=== PATIENT | female | born 1970 | race Caucasian/White ===

== ENCOUNTER → 2022-03-03 08:46 | Outpatient (BNVA) | payer MEDICAID, SELFPAY | PROVIDERS: PCP Internal Medicine; Referring Provider Internal Medicine; Visit Provider Physician Assistant | DX: Z12.11 Encounter for screening for malignant neoplasm of colon (principal); K59.01 Slow transit constipation | CPT/HCPCS: 99202 ==

== ENCOUNTER 2022-09-06 08:30 | Outpatient (REF) | payer MEDICAID, SELFPAY ==
--- NOTE | ~2022-09-06 | MM_ITS ---
EXAMINATION: MM SCREENING DIGITAL BREAST TOMOSYNTHESIS, BILATERAL CLINICAL INFORMATION: Screening. Asymptomatic. The lifetime risk of breast cancer based on the Tyrer-Cuzick Model is 4%. COMPARISON: Prior breast imaging exams, most recent mammography 02/25/2016 TECHNIQUE: Digital breast tomosynthesis is performed in both the craniocaudal and mediolateral oblique views along with computer-aided detection (CAD). Synthesized 2D images are generated from the tomosynthesis. FINDINGS: There are scattered areas of fibroglandular density (ACR BI-RADS breast composition Category b). Breast tissue composition is decreased since prior imaging 2016. There is no developing density or interval architectural abnormality. No significant mass or abnormal calcifications. There are some scattered punctate and coarse calcifications. The axilla and skin contours are unremarkable. MM/MM tomosynthesis screening BI IMPRESSION: No mammographic evidence of malignancy. ASSESSMENT: BI-RADS 2: Benign RECOMMENDATION: Routine annual mammography screening. This patient's information was entered into a reminder system with a target due date for their next mammogram.
== END 2022-09-06 08:31 | disposition home or self-care (01) ==
LOC: HO.MAMMO 08:30
PROVIDERS: PCP Internal Medicine; Visit Provider Internal Medicine
DX: Z12.31 Encounter for screening mammogram for malignant neoplasm of breast (principal)
CPT/HCPCS: 77063; 77067

== ENCOUNTER 2022-12-04 09:18 | Day surgery (SDC) | payer MEDICAID, SELFPAY ==
[2022-12-01 15:09] VITALS: BMI 19.8
[2022-12-04 09:45] VITALS: BMI 21.3
--- NOTE | 2022-12-04 10:14 | MHC.SHP ---
Pre-Procedural Eval Section A Date of Service: 12/04/22 Section B Chief Complaint: screening Details of Present Illness: Maternal uncle- rectal cancer in his 50's Relevant Family History (Specify if Yes): Yes Relevant Social History: Tobacco Use Present Medications: see Short Stay Collaborative assessment Medical History: Significant History (gracie angina ) History of Previous Operations: Relevant previous surgery/procedure and date(s) (History of surgery on arm Hx of right breast biopsy Hx of shoulder surgery) Allergies: Allergies Allergy/AdvReac Type Severity Reaction Status Date / Time ibuprofen [IBUPROFEN] Allergy Unknown FACE AND Verified 03/03/22 08:47 LIP SWELLING, swelling - facial, oral Review of Systems Sugical H&P ROS: Negative: Constitution, Cardiovascular, Respiratory, Neurological, Psychiatric, Hem-Onc, Allergic/Immunologic, Gastrointestinal, Genitourinary, Musculoskeletal, Integumentary, Endocrine and Eyes/Ears/Nose/Throat Exam Surgical H&P Exam: Normal: HEENT, Normal: Heart, Normal: Lungs, Normal: Extremities, Normal: Abdomen, Normal: Skin and Normal: Neurological Plan Diagnosis/Plan: Unchanged I have reviewed the history and physical and performed a pertinent physical examination on my patient. No changes have occurred unless specified. Time Spent With Patient Time: Total time managing care of this patient today ____ minutes.
--- NOTE | 2022-12-04 10:37 | HO.ANESPROP2 ---
HPI - Anesthesia Eval Consult details Narrative: Colonoscopy [facility] Active Problems Active Problems: All Active Problems (Updated 12/01/22 @ 15:09 by Lyndsay Villarreal RN) Encounter for screening colonoscopy (Acute) Constipation due to slow transit (Acute) Past Medical History Medical History GERD (gastroesophageal reflux disease) Ludwigs angina Lupus Family History Family History Maternal Uncle Rectum cancer Maternal Grandmother Uterus cancer Family history of problems with anesthesia: No Surgical History Surgical History History of incision and drainage History of surgery on arm Hx of right breast biopsy History of Problems with Anesthesia: No Social History Social History Household Members: Significant Other Are you a primary career development engineer to a significant other at home: No Do you presently have visiting nurse or other home services: No Alcohol intake: never Patient Tobacco Use Status: Current everyday Tobacco user Tobacco use type: Cigarette Cigarette Packs Per Day: 1 Cigarettes Per Day: 20.0 Years Smoked: 30 Use of substances other than those prescribed or required for medical reasons: No Have you been hit, kicked, punched, or otherwise hurt by someone within the past year? If so, by whom?: No Are you DNR?: No Advance Directives: No Advance Directives Information Provided: Yes Advance Directives on File: No Recently lost weight without trying: No Eating poorly because of decreased appetite: No Nutrition Risks: No Nutritional Risk Patient : No FDLMP: N/A Poor oral hygiene: No (lower partial) Meds Allergies Allergy/AdvReac Type Severity Reaction Status Date / Time ibuprofen [IBUPROFEN] Allergy Unknown FACE AND Verified 03/03/22 08:47 LIP SWELLING, swelling - facial, oral Active Medications: Current Medications Lactated Ringer's (Lr) 1,000 mls @ 100 mls/hr IVCONT .Q10H JILL Last Admin: 12/04/22 09:57 Dose: 100 mls/hr Exam Exam Date and Time: December 04, 2022 1037 Height,Weight and Vital Signs: Height 5 ft 3 in Weight 54.431 kg Airway Mallampati Class: II TM Dist: >3cm Neck ROM: Full Heart: rrr Lungs: cta Assessment and Plan Assessment Anesthesia Assessment: Anesthesia Plan Discussed Final Anesthetic Review Family History of Problems with Anesthesia: No History of Problems with Anesthesia: No NPO: Yes ASA Class: II Final Preanesthetic Review: No Changes in Pt Med Stat, Meds/Allgs Chart Reviewed, Consent Obtained/Reviewed and Anes Risks/Benef Reviewed Patient Risk: Low Procedure Risk: Low Anesthetic Plan Anesthetic Plan: MAC: and Agree w/ Assess. and Plan Disposition: Standard PACU
--- NOTE | 2022-12-04 11:43 | W.PM.OPN ---
Operative Note Operative Note Date of Service: 12/04/22 Narrative: Operative Information Procedure Description: Colonoscopy Indication: screening Anesthesia: MAC COLONOSCOPY Instrument: Olympus variable stiffness pediatric scope 190L Colonoscopy Monitoring: Vital signs and clinical assessment, continuous EKG monitoring, Pulse oximetry, Carbon Dioxide monitoring and blood pressure monitoring were done throughout the procedure. Colon withdrawal time was 18 minutes. Procedure: The patient was placed in the left lateral decubitis position and pre-procedure medications were administered. After a digital rectal examination of the ano-rectum, the video colonoscope was inserted into the rectum and advanced through the colon to the cecum/TI. The colonoscope was slowly withdrawn in a retrograde panoramic fashion and the colon mucosa was carefully examined including a retroflexed view of the rectum. Findings and interventions are described below. Procedure Difficulty: moderate Findings: Terminal Ileum-normal Cecum:normal Ascending Colon: normal Transverse Colon -normal Descending Colon:normal Sigmoid Colon: severe diverticulosis with tight angled sigmoid, 12-14 mm semi pedunculated polyp injected with 1 cc of epinephrine then removed with hot snare and retrieved Rectum: Retroflexion with small internal hemorrhoids, grade I Anorectum - normal Colon preparation: [place] Bowel Preparation Scale Right colon; 2 Transverse colon: 3 Left colon; 3 (0 = Unprepared colon segment with mucosa not seen due to solid stool that cannot be cleared. 1 = Portion of mucosa of the colon segment seen, but other areas of the colon segment not well seen due to staining, residual stool and/or opaque liquid. 2 = Minor amount of residual staining, small fragments of stool and/or opaque liquid, but mucosa of colon segment seen well. 3 = Entire mucosa of colon segment seen well with no residual staining, small fragments of stool or opaque liquid) Impression and Post Procedure Diagnosis: polyp internal hemorrhoids diverticular disease Plan: High fiber diet leaflet Avoid straining at stool, epsom salts and sitz bath, anusol supps or cream Repeat Colonoscopy in 1 year due to large polyp removed today or earlier if clinically indicated Above findings were reviewed with the patient and relevant handouts were provided if indicated.
[2022-12-04 11:49] VITALS: BP 139/76; PULSE 61; RESP 16; TEMP 36.3; O2SAT 98
[2022-12-04 12:04] VITALS: BP 143/83; PULSE 59; RESP 16; TEMP 36.3; O2SAT 98
== END 2022-12-04 12:53 | disposition home or self-care (01) ==
PROVIDERS: PCP Internal Medicine; Visit Provider Internal Medicine Gastroenterology
PROC: 0DJD8ZZ Inspection of Lower Intestinal Tract, Via Natural or Artificial Opening Endoscopic (ICD-10-PCS; CPT 45378; principal; 2022-12-04 11:00)
DX: Z12.11 Encounter for screening for malignant neoplasm of colon (principal); K63.5 Polyp of colon; K57.30 Diverticulosis of large intestine without perforation or abscess without bleeding; K64.0 First degree hemorrhoids
CPT/HCPCS: 45385; 45381; 88305; J0171

== ENCOUNTER 2022-12-24 10:07 | Outpatient (AMB) | payer MEDICAID, SELFPAY ==
--- NOTE | 2022-12-24 10:21 | A.OFFVIS_ITS ---
Intake Vital Signs 12/24/22 10:24 Height 5 ft 3 in Weight 124 lb BMI 22.0 BP 128/68 Blood Pressure Location Lt brachial Position Sitting Pulse 79 Intake Visit Reasons: S/p colon-Rockwell Intake Note: Patient follow up for Colonoscopy results. Patient cc: abdominal pain/bloating, acid reflex, constipation with some blood when patient wipe her out. Test Grader Required: No Accompanied by: Self / Same As Patient Allergies ibuprofen [IBUPROFEN] Allergy (Unknown, Verified 12/24/22 10:20) FACE AND LIP SWELLING, swelling - facial, oral Medication List - Last Reconciled 12/25/22 by Evangelina Bryan PA-C barium sulfate 2%(w/v) (Readi-Cat 2) 450 mL PO DIRECTED 1 day docusate sodium (Colace) 200 mg (2 x 100 mg) PO BEDTIME PRN methylcellulose (laxative) (Citrucel) 500 mg PO TID 30 days polyethylene glycol 3350 (Miralax) 17 grams PO DAILY HPI HPI Comments History of Present Illness Details A 52 y/o female follow up after index screenong colonoscpy tolerated procedure well. She complains of constant abdominal cramping-improves somewhat from time to time however never really resolved-she has not had any fever chills Chronic constipation- she has tried otc-on over the years- she has not had success for good bowel pattern- She typically has a BM weekly-she does get frustrated with this time Reviewed procedure report as well as pathology No nausea, vomiting fever or chills PFSH Medical History (Updated 12/24/22 @ 10:52 by Evangelina Bryan PA-C) Chronic abdominal pain GERD (gastroesophageal reflux disease) Ludwigs angina Lupus Surgical History History of incision and drainage History of surgery on arm Hx of colonoscopy Hx of right breast biopsy Family History Maternal Uncle Rectum cancer Maternal Grandmother Uterus cancer Social History Household Members: Significant Other Are you a primary special needs child caregiver to a significant other at home: No Do you presently have visiting nurse or other home services: No Alcohol intake: never Patient Tobacco Use Status: Current everyday Tobacco user Tobacco use type: Cigarette Cigarette Packs Per Day: 1 Cigarettes Per Day: 20.0 Years Smoked: 30 Review of Systems Const All systems reviewed & are unremarkable except as noted in HPI and below Card Denies chest pain and Denies dyspnea Resp Denies dyspnea GI Reports constipation and Reports GI cramping Physical Exam Vital Signs: Last Vital Signs Pulse 79 12/24/22 10:24 BP 128/68 12/24/22 10:24 BMI result Body Mass Index 22.0 Const General: cooperative, healthy appearing, comfortable, no acute distress and anxious Orientation/consciousness: patient oriented x3 Limitations: no limitations Resp Effort & Inspection: normal respiratory effort and able to speak in complete sentences Neuro General: patient oriented x3 Results Reviewed Results Reviewed: Impression and Post Procedure Diagnosis: polyp internal hemorrhoids diverticular disease Plan: High fiber diet leaflet Avoid straining at stool, epsom salts and sitz bath, anusol supps or cream Repeat Colonoscopy in 1 year due to large polyp removed today or earlier if clinically indicated Name:?Veronica Hitchcock Age/Sex: 52/F Attending: Edward Rockwell MD : 1970 Submitted by: Edward Rockwell MD Copies to: Cindy Winters MD MR #: [id number] ? Status: [facility] Collected: 12/04/22 Location: [facility] Received: 12/04/22 Diagnosis Colon, sigmoid, polypectomy:? Hyperplastic mucosal polyp. Sigmoid Colon: severe diverticulosis with tight angled sigmoid, 12-14 mm semi pedunculated polyp injected with 1 cc of epinephrine then removed with hot snare and retrieved? Rectum: Retroflexion with small internal hemorrhoids, grade I Anorectum - normal Assessment & Plan Assessment & Plan (1) Constipation due to slow transit: Comment: Maintain high-fiber diet, Citrucel Code(s): K59.01 - Slow transit constipation (2) Diverticulosis large intestine w/o perforation or abscess w/o bleeding: Code(s): K57.30 - Diverticulosis of large intestine without perforation or abscess without bleeding (3) Hyperplastic colon polyp: Code(s): K63.5 - Polyp of colon (4) Chronic abdominal pain: Code(s): R10.9 - Unspecified abdominal pain; G89.29 - Other chronic pain Plan Somewhat difficult to assess, chronic GI complaints over years Update labs check CBC CMP CT abdomen pelvis IV oral contrast rule out underlying causes to include new Orders: Orders CT abdomen pelvis w IV con 12/24/22 G89.29 - Other chronic pain, K57.30 - Diverticulosis of large intestine without perforation or abscess without bleeding, R10.9 - Unspecified abdominal pain Complete Blood Count Auto Diff 12/24/22 G89.29 - Other chronic pain, K57.30 - Diverticulosis of large intestine without perforation or abscess without bleeding, R10.9 - Unspecified abdominal pain Comprehensive Met. Panel 12/24/22 G89.29 - Other chronic pain, K57.30 - Diverti culosis of large intestine without perforation or abscess without bleeding, K58.9 - Irritable bowel syndrome without diarrhea, R10.9 - Unspecified abdominal pain Medications: New docusate sodium (Colace) 200 mg (2 x 100 mg) PO BEDTIME PRN 60 caps 5RF constipation methylcellulose (laxative) (Citrucel) 500 mg PO TID 90 tabs 5RF 30 days barium sulfate 2%(w/v) (Readi-Cat 2) 450 mL PO DIRECTED 900 mL 0RF 1 day Patient Instructions: 52-year-old female with chronic diffuse, vague abdominal pain-chronic constipation despite trials of OTC Currently not following any regimen She will maintain high-fiber diet, Colace 200 mg q.h.s. as well as added fiber supplement Will get CBC CMP. CT abdomen pelvis diverticulosis/diverticulitis ER protocol She agrees with the plan Encouraged to call questions or concerns Coding Level of Care Code Est Pt Level 4 (39217) Diagnoses Constipation due to slow transit K59.01 Diverticulosis large intestine w/o perforation or abscess w/o bleeding K57.30 Hyperplastic colon polyp K63.5 Chronic abdominal pain R10.9; G89.29 Time Spent (min) 30
[2022-12-24 10:24] VITALS: BP 128/68; PULSE 79; BMI 22.0
== END 2022-12-24 10:56 | disposition home or self-care (01) ==
PROVIDERS: Visit Provider Physician Assistant
DX: K59.01 Slow transit constipation (principal); K57.30 Diverticulosis of large intestine without perforation or abscess without bleeding; K63.5 Polyp of colon; R10.9 Unspecified abdominal pain; G89.29 Other chronic pain
CPT/HCPCS: 99214

== ENCOUNTER → 2022-12-24 10:07 | Outpatient (BNVA) | payer MEDICAID, SELFPAY | PROVIDERS: Visit Provider Physician Assistant | DX: K59.01 Slow transit constipation (principal); K57.30 Diverticulosis of large intestine without perforation or abscess without bleeding; K63.5 Polyp of colon; R10.9 Unspecified abdominal pain; G89.29 Other chronic pain | CPT/HCPCS: 99214 ==

== ENCOUNTER 2023-01-07 07:44 | Outpatient (REF) | payer MEDICAID, SELFPAY ==
[2023-01-07 07:56] LABS: MANUAL DIFF FLAG NO
[2023-01-07 09:41] LABS: Basophils Percent Auto 0.8 % (0-2); Eosinophils Absolute Auto 0.3 X10*3/uL (0.0-0.4); Eosinophils Percent Auto 4.7 % (0-4); Hematocrit 45.9 % (37.0-47.0); Hemoglobin 15.1 g/dl (12.0-16.0); Imm Gran Abs Auto 0.02 X10*3/uL (0.00-0.03); Imm Gran Pct Auto 0.4 % (0.0-0.4); Lymphocytes Absolute Auto 1.8 X10*3/uL (1.2-4.9); Lymphocytes Percent Auto 33.5 % (20-40); Mean Corpuscular HGB Conc 32.9 g/dl (31.0-35.0); Mean Corpuscular Hemoglobin 31.2 pg (27.0-33.0); Mean Corpuscular Volume 94.8 fL (80.0-98.0); Mean Platelet Volume 10.7 fL (9.4-12.3); Monocytes Absolute Auto 0.3 X10*3/uL (0.1-1.2); Monocytes Percent Auto 5.9 % (2-11); Neutrophils Absolute Auto 2.9 x10*3/uL (2.0-8.3); Neutrophils Percent Auto 54.7 % (45-73); Platelet Count 210 X10*3/uL (160-400); Red Blood Count 4.84 X10*6/uL (4.20-5.50); Red Cell Distribution Width 11.8 % (11.0-16.0); White Blood Count 5.3 X10*3/uL (4.8-10.8)
[2023-01-07 11:01] LABS: Alanine Aminotransferase 14 U/L (0-31); Albumin Level 4.2 g/dL (3.5-5.0); Alkaline Phosphatase 82 U/L (39-117); Anion Gap 12 (12-20); Aspartate Amino Transferase 16 U/L (5-31); Bilirubin Total 0.3 mg/dL (0.0-1.0); Blood Urea Nitrogen 12 mg/dL (9-16); Calcium 9.6 mg/dL (8.4-10.2); Carbon Dioxide 25 mmol/L (22-29); Chloride 107 mmol/L (96-108); Cholesterol 267 mg/dL; Estimated Glomerular Filt Rate > 60; Glucose Random 85 mg/dL (60-115); HDL Cholesterol 49 mg/dL; LDL Cholesterol Calculated 196 mg/dl; Potassium 4.3 mmol/L (3.3-5.1); Sodium 140 mmol/L (135-145); Triglycerides 113 mg/dL
[2023-01-07 11:21] LABS: Thyroid Stimulating Hormone 1.41 uIU/mL (0.32-4.0)
== END 2023-01-07 07:45 | disposition home or self-care (01) ==
LOC: HO.LAB 07:44
PROVIDERS: Absent Provider Internal Medicine; PCP Internal Medicine; Visit Provider Physician Assistant
DX: K59.04 Chronic idiopathic constipation (principal); Z72.0 Tobacco use
CPT/HCPCS: 36415; 80053; 80061; 84443; 85025

== ENCOUNTER 2023-01-21 09:53 | Outpatient (REF) | payer MEDICAID, SELFPAY ==
--- NOTE | ~2023-01-21 | CT_ITS ---
EXAMINATION: CT ABDOMEN AND PELVIS WITH CONTRAST CLINICAL INFORMATION: Abdominal pain. COMPARISON: None available. TECHNIQUE: Multidetector volumetric images were obtained from the superior aspect of the liver through the pubic symphysis following administration 85 mL of Omnipaque 350 intravenous contrast. Sagittal and coronal reformatted images were obtained on the technologist's workstation. Oral contrast: Yes. This CT examination was performed using dose optimization techniques as appropriate, variously including the following: *Automated exposure control. *Adjustment of mA and/or kV according to patient size (this includes techniques or standardized protocols for targeted exams where dose is matched to indication/reason for exam; i.e. extremities or head). *Use of iterative reconstruction technique. DLP: 330 mGy-cm. FINDINGS: LUNG BASES: The visualized lung bases are unremarkable. LIVER, GALLBLADDER, AND BILIARY TREE: The liver is normal in size, shape, and attenuation. No focal hepatic lesion or biliary ductal dilatation is present. The gallbladder is unremarkable with no evidence of radiopaque gallstones, gallbladder wall thickening, or obvious pericholecystic inflammatory changes. PANCREAS: Unremarkable. SPLEEN: Unremarkable. ADRENAL GLANDS: Unremarkable. KIDNEYS AND URETERS: The kidneys are normal in size, shape, and attenuation. No hydronephrosis, hydroureter, or calculi seen. No perinephric stranding. BLADDER: Unremarkable. GASTROINTESTINAL TRACT: Extensive diverticular changes are seen in the sigmoid colon without pericolonic inflammatory change to suggest diverticulitis. The small and large bowel are unremarkable. The appendix is most likely seen and is unremarkable. There is no evidence of appendicitis. ABDOMINAL WALL: No significant hernia is appreciated. LYMPH NODES: Normal. VASCULAR: Unremarkable. PELVIC VISCERA: The uterus and adnexa are unremarkable. OSSEOUS STRUCTURES: Unremarkable. CT/CT abdomen pelvis w IV con IMPRESSION: 1. A cause for the patient's abdominal pain has not been found. 2. Incidental note made of extensive sigmoid diverticulosis without diverticulitis. Fleischner guidelines were followed.
[2023-01-21] MEDS: iohexoL 350 MG/ML 100 ML INFUS..BTL 85 ML IV (12:24)
== END 2023-01-21 09:54 | disposition home or self-care (01) ==
LOC: HO.CT 09:53
PROVIDERS: PCP Internal Medicine; Visit Provider Physician Assistant
DX: R10.9 Unspecified abdominal pain (principal); K57.30 Diverticulosis of large intestine without perforation or abscess without bleeding; G89.29 Other chronic pain
CPT/HCPCS: 74177; Q9967

== ENCOUNTER 2023-02-05 12:39 | Outpatient (AMB) | payer MEDICAID, SELFPAY ==
--- NOTE | 2023-02-05 12:42 | MHC.OFFVIS ---
Intake Vital Signs 02/05/23 12:45 Height 5 ft 3 in Weight 127 lb BMI 22.5 BP 134/81 Blood Pressure Location Lt brachial Position Sitting Pulse 95 Intake Visit Reasons: follow up after CT Scan Intake Note: Patient follow up after CT scan. Patient cc: abdominal pain/bloating, acid reflex and medication is not helping her. Clinic Office Assistant Required: No Accompanied by: Self / Same As Patient Allergies ibuprofen [IBUPROFEN] Allergy (Unknown, Verified 02/05/23 12:42) FACE AND LIP SWELLING, swelling - facial, oral Medication List - Last Reconciled 02/05/23 by Evangelina Bryan PA-C docusate sodium (Colace) 200 mg (2 x 100 mg) PO BEDTIME PRN methylcellulose (laxative) (Citrucel) 500 mg PO TID 30 days polyethylene glycol 3350 (Miralax) 17 grams PO DAILY HPI HPI Comments History of Present Illness Details A 53-year-old female follows up after recent CT for chronic abdominal pain. She says she still has constant abdominal pain that wanders- She has good stool jennifer- she looks on internet- brings a long info on ascites- She feels fulls- has gained weight-is bloated - acid reflux -recently began omeprazole, no notable difference She admits to stress- Recent colonoscopy with no findings to account for her symptoms. No nausea, vomiting, hematemesis, hematochezia fever chills PFSH Medical History (Updated 02/05/23 @ 13:39 by Evangelina Bryan PA-C) Chronic abdominal pain GERD (gastroesophageal reflux disease) Lupus Ludwigs angina Surgical History Hx of colonoscopy History of incision and drainage Hx of right breast biopsy History of surgery on arm Family History Maternal Uncle Rectum cancer Maternal Grandmother Uterus cancer Social History Household Members: Significant Other Are you a primary care analyst to a significant other at home: No Do you presently have visiting nurse or other home services: No Alcohol intake: never Patient Tobacco Use Status: Current everyday Tobacco user Tobacco use type: Cigarette Cigarette Packs Per Day: 1 Cigarettes Per Day: 20.0 Years Smoked: 30 Review of Systems Const All systems reviewed & are unremarkable except as noted in HPI and below Card Denies chest pain and Denies dyspnea Resp Denies dyspnea GI Reports abdominal pain, Reports bloating, Denies change in bowel habits, Reports heartburn, Denies nausea and Denies vomiting Psych Reports other (stress) Physical Exam Vital Signs: Last Vital Signs Pulse 95 02/05/23 12:45 BP 134/81 02/05/23 12:45 BMI result Body Mass Index 22.5 Const General: healthy appearing, comfortable and no acute distress Orientation/consciousness: patient oriented x3 Limitations: no limitations Eyes Sclerae: sclerae normal Resp Effort & Inspection: normal respiratory effort Auscultation: clear to auscultation bilaterally, no rales, no rhonchi and no wheezes Cardio Rate: regular rate Rhythm: regular rhythm Heart sounds: S1 normal heart sound present and S2 normal heart sound present GI Palpation (GI): Soft to palpation, nontender, no guarding and No Ascites present Percussion: Yes normal to percussion and No Fluid wave present Auscultation: normal bowel sounds Skin General skin exam: no rashes or lesions noted and other (suntanned) Neuro General: patient oriented x3 Extrem General: Yes full ROM Psych Appearance: grossly normal and well kempt Mental Status: mental status grossly normal Speech and movement: Clear speech present Affect: normal affect Attitude: cooperative Thought process: Normal thought process present Thought content: Normal thought content present Results Reviewed Results Reviewed: CT/CT abdomen pelvis w IV con IMPRESSION: 1. A cause for the patient's abdominal pain has not been found. 2. Incidental note made of extensive sigmoid diverticulosis without diverticulitis. Fleischner guidelines were followed. Results Reviewed: Impression and Post Procedure Diagnosis: polyp internal hemorrhoids diverticular disease Plan: High fiber diet leaflet Avoid straining at stool, epsom salts and sitz bath, anusol supps or cream Repeat Colonoscopy in 1 year due to large polyp removed today or earlier if clinically indicated Name:?Veronica Hitchcock Age/Sex: 52/FAttending: Edward Rockwell MD : 1970Submitted by: Edward Rockwell MD to: Cindy Winters MD MR #: [id number]? Status: DEP SDCCollected: 12/04/22 [facility] Diagnosis Colon, sigmoid, polypectomy:? Hyperplastic mucosal polyp. Sigmoid Colon: severe diverticulosis with tight angled sigmoid, 12-14 mm semi pedunculated polyp injected with 1 cc of epinephrine then removed with hot snare and retrieved? Rectum: Retroflexion with small internal hemorrhoids, grade I Anorectum - normal Assessment & Plan Assessment & Plan (1) Chronic abdominal pain: Comment: P/E-nontender, no appreciated ascites Code(s): R10.9 - Unspecified abdominal pain; G89.29 - Other chronic pain Plan: Review CT scan Reviewed colonoscopy and recent blood work (2) Bloating: Comment: Abdomen soft nontender Code(s): R14.0 - Abdominal distension (gaseous) Plan: FODMAP Dietary modification (3) GERD (gastroesophageal reflux disease): Comment: Smoker, Code(s): K21.9 - Gastro-esophageal reflux disease without esophagitis Plan: Discontinue omeprazole-will take Tums for the next 2 weeks-will get H pylori stool antigen-if positive treat Plan She will call for results of H pylori 2 days after submission Orders: Orders H pylori Ag Stool 2 Weeks A04.8 - Other specified bacterial intestinal infections Patient Instructions: 53-year-old female smoker, abdominal bloating -acid reflux HP stool 2 weeks- tums interim, may go back to omeprazole once submit-she will call for H pylori results if positive we will treat Lifestyle dietary change-reviewed fodmap-literature given Stress reduction Continue bowel regimen Encouraged to call questions or concerns Appreciate the opportunity assist in care the patient Coding Level of Care Code Est Pt Level 3 (26284) Diagnoses Chronic abdominal pain R10.9; G89.29 Bloating R14.0 GERD (gastroesophageal reflux disease) K21.9 Time Spent (min) 30
[2023-02-05 12:45] VITALS: BP 134/81; PULSE 95; BMI 22.5
== END 2023-02-05 16:18 | disposition home or self-care (01) ==
PROVIDERS: PCP Internal Medicine; Visit Provider Physician Assistant
DX: R10.9 Unspecified abdominal pain (principal); G89.29 Other chronic pain; R14.0 Abdominal distension (gaseous); K21.9 Gastro-esophageal reflux disease without esophagitis
CPT/HCPCS: 99213

== ENCOUNTER 2023-02-05 12:39 | Outpatient (REF) | payer MEDICAID, SELFPAY ==
[2023-02-05 13:39] LABS: MANUAL DIFF FLAG NO
[2023-02-05 13:54] LABS: Basophils Absolute Auto 0.1 X10*3/uL (0.0-0.2); Basophils Percent Auto 0.7 % (0-2); Eosinophils Absolute Auto 0.2 X10*3/uL (0.0-0.4); Hematocrit 45.8 % (37.0-47.0); Hemoglobin 15.5 g/dl (12.0-16.0); Imm Gran Abs Auto 0.01 X10*3/uL (0.00-0.03); Imm Gran Pct Auto 0.1 % (0.0-0.4); Lymphocytes Absolute Auto 2.3 X10*3/uL (1.2-4.9); Mean Corpuscular HGB Conc 33.8 g/dl (31.0-35.0); Mean Corpuscular Hemoglobin 31.3 pg (27.0-33.0); Mean Corpuscular Volume 92.5 fL (80.0-98.0); Mean Platelet Volume 10.2 fL (9.4-12.3); Monocytes Absolute Auto 0.4 X10*3/uL (0.1-1.2); Monocytes Percent Auto 5.8 % (2-11); Neutrophils Absolute Auto 3.9 x10*3/uL (2.0-8.3); Neutrophils Percent Auto 56.4 % (45-73); Platelet Count 216 X10*3/uL (160-400); Red Blood Count 4.95 X10*6/uL (4.20-5.50); White Blood Count 6.9 X10*3/uL (4.8-10.8)
[2023-02-05 14:46] LABS: Alanine Aminotransferase 14 U/L (0-31); Albumin Level 4.6 g/dL (3.5-5.0); Alkaline Phosphatase 81 U/L (39-117); Anion Gap 14 (12-20); Aspartate Amino Transferase 17 U/L (5-31); Bilirubin Total 0.4 mg/dL (0.0-1.0); Blood Urea Nitrogen 8 mg/dL (9-16); Calcium 10.1 mg/dL (8.4-10.2); Carbon Dioxide 23 mmol/L (22-29); Chloride 108 mmol/L (96-108); Estimated Glomerular Filt Rate > 60; Glucose Random 88 mg/dL (60-115); Sodium 141 mmol/L (135-145); Total Protein 7.3 g/dL (6.5-8.0)
== END 2023-02-05 12:40 | disposition home or self-care (01) ==
LOC: HO.LAB 12:39
PROVIDERS: PCP Internal Medicine; Visit Provider Physician Assistant
DX: R10.9 Unspecified abdominal pain (principal); K58.9 Irritable bowel syndrome, unspecified; K57.30 Diverticulosis of large intestine without perforation or abscess without bleeding; G89.29 Other chronic pain; R14.0 Abdominal distension (gaseous); K21.9 Gastro-esophageal reflux disease without esophagitis
CPT/HCPCS: 36415; 80053; 85025; 99212

== ENCOUNTER 2023-02-19 12:18 | Outpatient (REF) | payer MEDICAID, SELFPAY | END 2023-02-19 12:19 | disposition home or self-care (01) | LOC: HO.LNP 12:18 | PROVIDERS: Visit Provider Physician Assistant | DX: A04.8 Other specified bacterial intestinal infections (principal) | CPT/HCPCS: 87338 ==

== ENCOUNTER 2023-03-27 07:50 | Outpatient (REF) | payer MEDICAID, SELFPAY ==
[2023-03-27 08:43] LABS: Alanine Aminotransferase 29 U/L (0-31); Albumin Level 4.5 g/dL (3.5-5.0); Anion Gap 13 (12-20); Aspartate Amino Transferase 26 U/L (5-31); Bilirubin Total 0.2 mg/dL (0.0-1.0); Blood Urea Nitrogen 13 mg/dL (9-16); Calcium 10.1 mg/dL (8.4-10.2); Carbon Dioxide 25 mmol/L (22-29); Chloride 107 mmol/L (96-108); Estimated Glomerular Filt Rate > 60; Glucose Random 94 mg/dL (60-115); Potassium 4.5 mmol/L (3.3-5.1); Sodium 140 mmol/L (135-145); Total Protein 7.4 g/dL (6.5-8.0)
[2023-03-27 08:44] LABS: Alkaline Phosphatase 82 U/L (39-117); Cholesterol 163 mg/dL (<200); HDL Cholesterol 60 mg/dL (>40); LDL Cholesterol Calculated 91 mg/dL (<100); Triglycerides 64 mg/dL (<150)
== END 2023-03-27 07:51 | disposition home or self-care (01) ==
LOC: HO.LAB 07:50
PROVIDERS: PCP Internal Medicine; Visit Provider Internal Medicine
DX: E78.01 Familial hypercholesterolemia (principal); R10.13 Epigastric pain; R14.0 Abdominal distension (gaseous); Z72.0 Tobacco use
CPT/HCPCS: 36415; 80053; 80061

== ENCOUNTER 2023-05-05 12:23 | Outpatient (AMB) | payer MEDICAID, SELFPAY ==
--- NOTE | 2023-05-05 12:29 | MHC.OFFVIS ---
Intake Vital Signs 05/05/23 12:31 Height 5 ft 3 in Weight 137 lb BMI 24.3 BP 131/84 Blood Pressure Location Lt brachial Position Sitting Pulse 82 Intake Visit Reasons: follow up request by pt Intake Note: Patient follow up for abdominal bloating Patient cc: Nauseas, abdominal pain with bloating, acid reflex on and off, and denies any other GI issues. 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 Trial of omeprazole previously and others however not beneficial. Describes reflux, Denies depression She does however admit to stress-however trying to manage Dicyclomine not helpful-d/c and did not like the effects feel that it was not any benefit No nausea, vomiting hematemesis, hematochezia fever chills PFSH Medical History (Updated 05/06/23 @ 10:16 by Evangelina Bryan PA-C) Chronic abdominal pain GERD (gastroesophageal reflux disease) Lupus Ludwigs angina Surgical History Hx of colonoscopy History of incision and drainage Hx of right breast biopsy History of surgery on arm Family History Maternal Uncle Rectum cancer Maternal Grandmother Uterus cancer Social History Household Members: Significant Other Are you a primary healthcare market consultant to a significant other at home: No Do you presently have visiting nurse or other home services: No Alcohol intake: never Patient Tobacco Use Status: Current everyday Tobacco user Tobacco use type: Cigarette Cigarette Packs Per Day: 1 Cigarettes Per Day: 20.0 Years Smoked: 30 Review of Systems Const All systems reviewed & are unremarkable except as noted in HPI and below Card Denies chest pain and Denies dyspnea Resp Denies dyspnea GI Reports abdominal pain, Reports bloating, Denies heartburn, Denies nausea and Denies vomiting Psych Reports anxiety Physical Exam Vital Signs: Last Vital Signs Pulse 82 05/05/23 12:31 BP 131/84 05/05/23 12:31 BMI result Body Mass Index 24.3 Const General: cooperative, healthy appearing, comfortable and no acute distress Resp Effort & Inspection: normal respiratory effort and able to speak in complete sentences Skin General skin exam: no rashes or lesions noted Psych Appearance: grossly normal and well kempt Mental Status: mental status grossly normal Speech and movement: Clear speech present Affect: normal affect Attitude: cooperative Thought process: Normal thought process present Thought content: Normal thought content present Results Reviewed Results Reviewed: 11/2022 Impression and Post Procedure Diagnosis: polyp internal hemorrhoids diverticular disease Plan: High fiber diet leaflet Avoid straining at stool, epsom salts and sitz bath, anusol supps or cream Repeat Colonoscopy in 1 year due to large polyp removed today or earlier if clinically indicated CT/CT abdomen pelvis w IV con IMPRESSION: 1. A cause for the patient's abdominal pain has not been found. 2. Incidental note made of extensive sigmoid diverticulosis without diverticulitis. Fleischner guidelines were followed. Assessment & Plan Assessment & Plan (1) Bloating: Comment: Abdomen soft nontender Code(s): R14.0 - Abdominal distension (gaseous) Plan: r/o acid reflux, Precautions Low FODMAP (2) Chronic abdominal pain: Comment: Vague, no fevers, Code(s): R10.9 - Unspecified abdominal pain; G89.29 - Other chronic pain Plan: Continue to monitor Trial of famotidine (3) IBS (irritable bowel syndrome): Comment: Symptoms, vague intermittent, dyspepsia, H pylori negative Code(s): K58.9 - Irritable bowel syndrome without diarrhea Plan: Will give trial to H2 [place] Plan famotodine 40 mg EGD- Orders: Orders EDG - GI Use Only 05/05/23 G89.29 - Other chronic pain, R10.9 - Unspecified abdominal pain, R14.0 - Abdominal distension (gaseous) Medications: New famotidine 40 mg PO DAILY 30 tabs 5RF Patient Instructions: Trial famotidine 40 mg daily Reflux precautions reviewed Encouraged low FODMAP diet EGD r/o PUD, nonulcer dyspepsia, esophagitis, other endoscopic findings to account for her symptoms-she agrees with the plan Reviewed the procedure as well as rare risk and need for escort Coding Level of Care Code Est Pt Level 3 (92980) Diagnoses Bloating R14.0 Chronic abdominal pain R10.9; G89.29 IBS (irritable bowel syndrome) K58.9 Time Spent (min) 35
[2023-05-05 12:31] VITALS: BP 131/84; PULSE 82; BMI 24.3
== END 2023-05-05 13:00 | disposition home or self-care (01) ==
PROVIDERS: PCP Internal Medicine; Visit Provider Physician Assistant
DX: R14.0 Abdominal distension (gaseous) (principal); R10.9 Unspecified abdominal pain; G89.29 Other chronic pain; K58.9 Irritable bowel syndrome, unspecified
CPT/HCPCS: 99213

== ENCOUNTER → 2023-05-05 12:23 | Outpatient (BNVA) | payer MEDICAID, SELFPAY | PROVIDERS: PCP Internal Medicine; Visit Provider Physician Assistant | DX: R14.0 Abdominal distension (gaseous) (principal); R10.9 Unspecified abdominal pain; K58.9 Irritable bowel syndrome, unspecified; G89.29 Other chronic pain | CPT/HCPCS: 99212 ==

== ENCOUNTER 2023-07-08 14:11 | Outpatient (AMB) | payer MEDICAID, SELFPAY ==
--- NOTE | 2023-07-08 14:27 | MHC.OFFVIS ---
Intake Vital Signs 07/08/23 14:30 Height 5 ft 3 in Weight 136 lb 3.931 oz BMI 24.1 BP 129/78 Blood Pressure Location Lt brachial Position Sitting Pulse 76 Intake Visit Reasons: 8 week follow up Intake Note: Patient is seen in office for 8 wks follow up visit, following bloating. 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 Accompanied by: Self / Same As Patient Allergies ibuprofen [IBUPROFEN] Allergy (Unknown, Verified 07/08/23 14:29) FACE AND LIP SWELLING, swelling - facial, oral HPI HPI Comments History of Present Illness Details A 53 y/o female with heartburn- unsuccessful multiple ppi- pepcid 40 mg QD- works best- Abdominal bloating- (saw [facility] March), heartburn unable to identify anything specific Had CT 12/2022- no findings to acct for sx-reviewed again with patient Labs- look good FODMAP-has been able to eliminate some foods Due in November for repeat colon large bowels ok with regimen No fever chills hematemesis, hematochezia PFSH Medical History Chronic abdominal pain GERD (gastroesophageal reflux disease) Lupus Ludwigs angina Surgical History Hx of colonoscopy History of incision and drainage Hx of right breast biopsy History of surgery on arm Family History Maternal Uncle Rectum cancer Maternal Grandmother Uterus cancer Social History Household Members: Significant Other Are you a primary caregivers homecare to a significant other at home: No Do you presently have visiting nurse or other home services: No Alcohol intake: never Patient Tobacco Use Status: Current everyday Tobacco user Tobacco use type: Cigarette Cigarette Packs Per Day: 1 Cigarettes Per Day: 20.0 Years Smoked: 30 Review of Systems Const All systems reviewed & are unremarkable except as noted in HPI and below Card Denies chest pain and Denies dyspnea Resp Denies dyspnea GI Reports abdominal pain, Reports bloating, Reports change in bowel habits and Reports heartburn Physical Exam Const General: cooperative, healthy appearing and comfortable Orientation/consciousness: patient oriented x3 Limitations: no limitations Eyes Sclerae: sclerae normal Resp Effort & Inspection: normal respiratory effort and able to speak in complete sentences Auscultation: clear to auscultation bilaterally, no rales, no rhonchi and no wheezes Cardio Rate: regular rate Rhythm: regular rhythm Heart sounds: S1 normal heart sound present and S2 normal heart sound present GI Palpation (GI): Soft to palpation and nontender Auscultation: normal bowel sounds Skin General skin exam: no rashes or lesions noted Neuro General: patient oriented x3 Extrem General: Yes full ROM Psych Appearance: grossly normal and well kempt Mental Status: mental status grossly normal Speech and movement: Normal speech and movement present Affect: normal affect Attitude: cooperative Thought process: Normal thought process present Thought content: Normal thought content present Insight: Good insight present (Psych) Judgement: Good judgement present (Psych) Results Reviewed Results Reviewed: CT/CT abdomen pelvis w IV con IMPRESSION: 1. A cause for the patient's abdominal pain has not been found. 2. Incidental note made of extensive sigmoid diverticulosis without diverticulitis. Assessment & Plan Assessment & Plan (1) IBS (irritable bowel syndrome): Comment: Symptoms, vague intermittent, dyspepsia, H pylori negative-may have functional component Code(s): K58.9 - Irritable bowel syndrome without diarrhea (2) GERD (gastroesophageal reflux disease): Comment: Smoker, Code(s): K21.9 - Gastro-esophageal reflux disease without esophagitis Plan: Reviewed reflux precautions avoid culprits (3) Bloating: Comment: Abdomen soft nontender-reviewed CT Code(s): R14.0 - Abdominal distension (gaseous) Plan: Smoker pe-unremarkable (4) Chronic abdominal pain: Comment: Vague, no fevers, p/e-soft nontender Code(s): R10.9 - Unspecified abdominal pain; G89.29 - Other chronic pain (5) Diverticulosis large intestine w/o perforation or abscess w/o bleeding: Code(s): K57.30 - Diverticulosis of large intestine without perforation or abscess without bleeding Plan: Review ER protocol Maintain high-fiber diet Plan EGD colonoscopy with Dr. Rockwell -she is establish MiraLax Gatorade prep Continue famotidine 40 mg Avoid culprits- Reflux precautions review Orders: Orders EGD/[place] Combo - GI Use Only Today G89.29 - Other chronic pain, K57.30 - Diverticulosis of large intestine without perforation or abscess without bleeding, R10.9 - Unspecified abdominal pain, R14.0 - Abdominal distension (gaseous) Medications: New bisacodyl (Dulcolax (bisacodyl)) Day before procedure, prep day Take 4 tablets by mouth upon awakening followed by large glass of water 20 mg (4 x 5 mg) PO ONCE 1 day 4 tabs 0RF colonoscopy prep Z12.11 - Encounter for screening for malignant neoplasm of colon polyethylene glycol 3350 (Miralax) Take as directed by mouth the day before your procedure. 238 grams PO ONCE 1 day PRN 238 grams 0RF laxative effect Changed From famotidine 40 mg PO DAILY 30 tabs 5RF To famotidine 40 mg PO BID 30 days 60 tabs 5RF Patient Instructions: Very pleasant 53-year-old smoker, abdominal bloating GERD and history of colon polyp Reviewed reflux precautions She will continue 40 mg famotidine= she may increase to b.i.d. if needed Schedule EGD and polyp surveillance colonoscopy MiraLax Gatorade prep reviewed literature given Reviewed previous CT shows extensive diverticulosis-ER protocol review Maintain high-fiber diet Reviewed diverticulosis/diverticulitis ER protocol Encouraged to call with questions or concerns Coding Level of Care Code Est Pt Level 3 (46030) Diagnoses IBS (irritable bowel syndrome) K58.9 GERD (gastroesophageal reflux disease) K21.9 Bloating R14.0 Chronic abdominal pain R10.9; G89.29 Diverticulosis large intestine w/o perforation or abscess w/o bleeding K57.30 Time Spent (min) 30
[2023-07-08 14:30] VITALS: BP 129/78; PULSE 76; BMI 24.1
== END 2023-07-08 15:10 | disposition home or self-care (01) ==
PROVIDERS: PCP Internal Medicine; Visit Provider Physician Assistant
DX: K58.9 Irritable bowel syndrome, unspecified (principal); K21.9 Gastro-esophageal reflux disease without esophagitis; R14.0 Abdominal distension (gaseous); R10.9 Unspecified abdominal pain; G89.29 Other chronic pain; K57.30 Diverticulosis of large intestine without perforation or abscess without bleeding
CPT/HCPCS: 99213

== ENCOUNTER → 2023-07-08 14:11 | Outpatient (BNVA) | payer OTHER, SELFPAY | PROVIDERS: PCP Internal Medicine; Visit Provider Physician Assistant | DX: K58.9 Irritable bowel syndrome, unspecified (principal); K21.9 Gastro-esophageal reflux disease without esophagitis; K57.30 Diverticulosis of large intestine without perforation or abscess without bleeding; R14.0 Abdominal distension (gaseous); R10.9 Unspecified abdominal pain; G89.29 Other chronic pain | CPT/HCPCS: 99212 ==